=== PATIENT | female | born 1970 | race Caucasian/White ===

== ENCOUNTER 2021-11-05 11:17 | Day surgery (SDC) | payer BC ==
[2021-11-01 15:02] VITALS: BMI 26.8
[2021-11-05 14:15] VITALS: BP 118/73; PULSE 80; TEMP 97.9
== END 2021-11-05 14:16 | disposition home or self-care (01) ==
LOC: FASU-ENDO 11:17
PROVIDERS: ATTEND Internal Medicine Gastroenterology
PROC: 0DJD8ZZ Inspection of Lower Intestinal Tract, Via Natural or Artificial Opening Endoscopic (ICD-10-PCS; principal; 2021-11-05 12:57)
DX: Z12.11 Encounter for screening for malignant neoplasm of colon (principal)